=== PATIENT | female | born 1965 | race African-American/Black ===

== ENCOUNTER → 2016-07-30 | Outpatient (CLI) | payer BC ==
[~2016-07-30] MED LIST: ORTHO TRI-7 DAYS X
--- NOTE | ~2016-07-30 | CR172 ---
[facility] A Service of [facility] & [facility] RADIOLOGY TEXT RESULTS PATIENT: SRIDEVI SALCIDO LOCATION: [facility] : 65 UNIT #: [id number] AGE: [address]: Korin Mark MD SEX: F ORDER DR: [id number] [facility] [address] [place], [place] [address] [id number] O MR#: [id number] Acc #: [id number] NAME: SRIDEVI SALCIDO : 1965 SEX: F STUDY DATE/TIME: 07/30/2016 10:46 UNIT: [facility] ROOM: STUDY DESCRIPTION: CR Knee 3 Views Lt Attending Physician: Korin Mark M.D. Ordering Physician: Korin Mark M.D. MEDICAL IMAGING REPORT This report is preliminary unless electronic signature is present EXAM Left knee, 07/30/2016. HISTORY A 50-year-old woman, pain in the left knee. Recent right ankle fracture. No known knee injury. Pain and swelling x1 month. FINDINGS Three views of the left knee demonstrate preservation of the joint with no degenerative narrowing or marginal osteophyte formation. There is no loose body or joint effusion. Patella is normal. Soft tissues appear unremarkable. IMPRESSION Negative left knee Dictated by... Mo Hamilton M.D. THIS IS AN ELECTRONICALLY VERIFIED REPORT Mo Hamilton M.D. at 08/02/2016 8:06 AM Alison TD: 07/30/2016 20:13 JOB #: [id number] MEDICAL IMAGING REPORT Page 1 of 1 COPY
== END | disposition home or self-care (01) ==
LOC: CRAD 10:28
DX: M17.12 Unilateral primary osteoarthritis, left knee (principal)
CPT/HCPCS: 73562